=== PATIENT | female | born 1935 | race Hispanic/Latino ===

== ENCOUNTER 2016-08-23 11:09 | Day surgery (SDC) | payer MEDICARE, BC ==
[2016-08-20 06:45] VITALS: BMI 26.0
[2016-08-23 11:39] LABS: ADD MANUAL DIFF? NO
[2016-08-23 12:03] LABS: BASO # 0.04 K/mm3 (0.0-2.0); BASO % 0.5 % (0.0-3.0); EOS # 0.5 (0.0-0.7); EOS % 5.3 % (1.5-5.0); GRAN # 6.03 (1.4-6.5); GRAN % 70.1 % (50.0-68.0); HEMATOCRIT 44.3 % (36.0-48.0); LYMPH # 1.4 (1.2-3.4); LYMPH % 16.6 % (22.0-35.0); MEAN CORPUSCULAR HEMOGLOBIN 29.5 pg (25.0-35.0); MEAN CORPUSCULAR HGB CONC 32.7 g/dl (31.0-37.0); MEAN PLATELET VOLUME 12.1 fl (7.0-11.0); MONO # 0.7 (0.1-0.6); MONO % 7.5 % (1.0-6.0); PLATELET COUNT 214 10^3/uL (120.0-450.0); RED CELL DISTRIBUTION WIDTH 16.2 % (11.5-14.5); WHITE BLOOD COUNT 8.6 10^3/ul (4.5-11.0)
[2016-08-23 12:05] VITALS: RESP 20; O2SAT 98
[2016-08-23 12:12] LABS: CALCIUM 9.8 mg/dL (8.4-10.5)
[2016-08-23 12:17] LABS: INR 0.98 (0.93-1.08); PARTIAL THROMBOPLASTIN TIME 26.6 Seconds (23.7-30.8)
--- NOTE | 2016-08-23 12:17 | CP.SDSHP ---
Same Day Surgery H & P - History Proposed Procedure: ct guided thyroid Bx. Pre-Op Diagnosis: multiple nodules rt thyroid lobe. - Previous Medical/Surgical History Cardiac: Hypertension, Arrhythmia Pulmonary: Smoking, Cough/URI Endocrine/Metabolic: Thyroid Disease Neuro: TIA/CVA, Backaches Misc: Other (colitis) Pain: 0. No Pain Previous Surgical History: hystrectomy,left lobe thyroidectomy. - Allergies Allergies: Allergies No Known Allergies Allergy (Verified 08/01/15 08:57) - Physical Exam General Appearance: WNL. Vital Signs: Vital Signs 08/23/16 11:53 Temperature 98.2 F Pulse Rate 65 Respiratory 20 Rate Blood Pressure 114/67 O2 Sat by Pulse 98 Oximetry Mental Status: Alert & Oriented x3 Neuro: WNL Heart: WNL Lungs: Other (DECREASED BREATH SOUNDS BILATERAL.) - {Optional Preform as Required} Other Pertinent Findings: macular degenration,hyperlipidemia.hx of syncope.depression anxiety. - Impression Impression: multiple thyroid nodules rt lobe. - Date & Time Date: 08/23/16 Time: 12:15 Short Stay Discharge - Short Stay Discharge Admitting Diagnosis/Reason for Visit: THYROID NODULE E04.9 Disposition: HOME/ ROUTINE Referrals: Kamlesh Newton MD [Primary Care Provider] -
[2016-08-23] MEDS ORDERED: Midazolam 2 MG/2 ML VIAL ONE (13:08)
[2016-08-23] MEDS ORDERED: Oxycodone/Acetaminophen 5/325 mg Tab PO PRN (14:07)
[2016-08-23] MEDS ORDERED: Sodium Chloride 0.45% 1,000 ML IV SCH (14:15)
[2016-08-23 15:04] VITALS: TEMP 97.9
[2016-08-23 17:08] VITALS: BP 122/65; PULSE 63
--- NOTE | 2016-08-23 18:46 | US ---
PROCEDURE: Ultrasound-guided right thyroid fine needle aspiration biopsy. CLINICAL HISTORY: Previous left thyroidectomy. Multiple right thyroid nodules. Dominant 2.5 cm right thyroid nodule. PHYSICIAN(S): Damien Mcclain M.D. TECHNIQUE: The relative risks and indications for the procedure were explained to the patient and consent obtained. The patient was placed supine on the stretcher with the neck extended and preliminary sonography of the thyroid performed. This revealed normal isthmus and heterogeneous gland on the right with several nodules. The largest nodule measured 2.6 cm. The patient is status post left thyroidectomy. The neck was prepped and draped in the usual sterile fashion. Conscious sedation and monitoring were provided throughout the procedure by a nurse. 1% Xylocaine was used to anesthetize the skin and soft tissues at the access site. Three passes with a 22-gauge needle were performed under ultrasound guidance for fine needle aspiration of the 2.6 cm heterogeneous nodule in the right thyroid. The slides were reviewed by pathology and deemed adequate. The patient tolerated the procedure well. IMPRESSION: 1. Ultrasound guided fine needle aspiration of a 0.6 cm heterogeneousnodule in the right thyroid.
== END 2016-08-23 17:15 | disposition home or self-care (01) ==
LOC: SDS 11:09
PROVIDERS: ATTEND Radiology Vascular & Interventional Radiology
DX: E04.2 Nontoxic multinodular goiter (principal); I10 Essential (primary) hypertension; I49.9 Cardiac arrhythmia, unspecified; F17.210 Nicotine dependence, cigarettes, uncomplicated; R05 Cough; J06.9 Acute upper respiratory infection, unspecified; Z86.73 Personal history of transient ischemic attack (TIA), and cerebral infarction without residual deficits; K52.9 Noninfective gastroenteritis and colitis, unspecified; E78.5 Hyperlipidemia, unspecified; H35.30 Unspecified macular degeneration; F32.89 Other specified depressive episodes; F41.9 Anxiety disorder, unspecified
CPT/HCPCS: 10022; 36415; 80048; 85025; 85610; 85730; 88173; J2250; J2405; J3010; J7030

== ENCOUNTER 2018-05-26 06:47 | Day surgery (SDC) | payer MEDICARE ==
[2018-05-18 12:50] VITALS: BMI 21.2
[2018-05-26 07:29] VITALS: RESP 16; O2SAT 99
[2018-05-26] MEDS ORDERED: Simethicone 40 mg/0.6 ml Liquid (30 ml) ONE (07:55)
[2018-05-26] MEDS ORDERED: Etomidate 20 mg/10ml Inj IV ONE (08:11)
[2018-05-26] MEDS ORDERED: Propofol 10 mg/ml Inj (20 ML) ONE ×2 (08:11→08:55)
[2018-05-26] MEDS ORDERED: Lidocaine 1% Inj (20ml) ONE (08:11)
[2018-05-26] MEDS ORDERED: ePHEDrine 50 mg/ml Inj ONE (08:17)
[2018-05-26] MEDS ORDERED: Sodium Chloride 0.9% 1,000 ML IV SCH (09:15)
[2018-05-26 09:55] VITALS: BP 116/72; PULSE 87
[2018-05-26 11:23] VITALS: TEMP 97.7
== END 2018-05-26 10:55 | disposition home or self-care (01) ==
LOC: ENDO 06:47
PROVIDERS: ATTEND Internal Medicine Gastroenterology
DX: K52.831 Collagenous colitis (principal); D12.4 Benign neoplasm of descending colon; K57.30 Diverticulosis of large intestine without perforation or abscess without bleeding; K64.1 Second degree hemorrhoids; K21.0 Gastro-esophageal reflux disease with esophagitis; K29.70 Gastritis, unspecified, without bleeding; K31.89 Other diseases of stomach and duodenum
CPT/HCPCS: 43239; 45380; 45385; 88305; 88312; 88313; 88342; J2405; J2704; J3010; J7030; J7040

== ENCOUNTER 2018-06-06 09:48 | Outpatient (CLI) | payer MEDICARE | END 2018-06-06 09:49 | disposition home or self-care (01) | LOC: RAD 09:48 ==